=== PATIENT | male | born 1975 | race Caucasian/White ===

== ENCOUNTER 2021-06-27 06:24 | Day surgery (SDC) | payer BC ==
[2021-06-27] MEDS ORDERED: Sensorcaine 0.25% 10 ML ONE (06:38)
[2021-06-27] MEDS ORDERED: Zofran 4 MG/2 ML VIAL ONE ×2 (07:05→10:42)
[2021-06-27] MEDS ORDERED: DIPRIVAN 200 MG/20 ML IV ONE (07:05)
[2021-06-27] MEDS ORDERED: Zemuron 100 MG/10 ML ONE ×4 (07:05→09:53)
[2021-06-27] MEDS ORDERED: BRIDION 200MG/2ML IV ONE (07:05)
[2021-06-27] MEDS ORDERED: Versed 2 MG/2 ML Injection ONE (07:06)
[2021-06-27] MEDS ORDERED: SUBLIMAZE 100 MCG/2 ML ONE ×3 (07:06→10:42)
[2021-06-27] MEDS ORDERED: Lactated Ringers 1,000 ML IV ONE (07:11)
[2021-06-27] MEDS ORDERED: MEFOXIN 2 GM PREMIX** 2 GM/50 ML ML IV ONE (07:11)
[2021-06-27 07:17] VITALS: O2SAT 95
[2021-06-27] MEDS ORDERED: Lactated Ringers 1,000 ML IV SCH (07:30)
[2021-06-27] MEDS ORDERED: MEFOXIN 2 GM PREMIX** 2 GM/50 ML ML IV SCH (08:00)
[2021-06-27] MEDS ORDERED: Decadron 4 MG INJ ONE (08:58)
[2021-06-27] MEDS ORDERED: TORAdol 30 mg Injection ONE (09:20)
[2021-06-27 11:50] VITALS: BP 144/96; PULSE 73
--- NOTE | 2021-06-28 09:53 | OP ---
PROCEDURE DATE/TIME: 06/27/2021 0843 PREOPERATIVE DIAGNOSIS: Chronic cholecystitis with cholelithiasis. POSTOPERATIVE DIAGNOSIS: Chronic cholecystitis with cholelithiasis. PROCEDURE: Laparoscopic cholecystectomy. PROCEDURE PERFORMED BY: Elsie Valentin M.D. ESTIMATED BLOOD LOSS: Minimal less than 10 cc. ANESTHESIA: General. COMPLICATIONS: None. SPECIMEN: Gallbladder. HISTORY: This is a gentleman who presents with chronic cholecystitis symptoms. He does have gallstones. He is here for cholecystectomy. His MRI of the abdomen specifically to look at his liver has been reviewed with him and appears to be benign findings. He understands. He would like to proceed with his gallbladder surgery. All questions have been answered. His H&P has been reviewed with him, completed and his consent has also been reviewed and confirmed as well. DESCRIPTION OF PROCEDURE: He was then taken back to the operative suite. Anesthesia induced. Prepped and draped in the usual sterile fashion. A complete time out performed. Left upper quadrant incision made. Veress needle used to access the abdominal cavity. Good initial insufflatory pressure of 6. Abdomen insufflated evenly and easily. A 5 mm optical port placed at the same site under direct visualization. No injuries were identified. We then placed a superumbilical port this is an 11 port under direct visualization and two ports in the right upper quadrant both 5 ports. The gallbladder identified. It was retracted cephalad and lateral adhesions were taken down. We carefully dissected free the cystic duct and cystic artery. We then continued to clear our liver plate. The patient did actually have a slightly larger posterior cystic artery branch than the cystic artery anterior branch. These were coming off of the same base. We very clearly identified these and carefully dissected. We obtained a critical view. There were only two structures essentially entering the gallbladder, the cystic duct which was obvious as well as the cystic artery which had a very small anterior branch as well as appropriate sized posterior branch. These structures were then clipped and ligated. The gallbladder was taken off the liver bed with Bovie cautery. It was placed into a laparoscopic bag. The laparoscopic bag was then removed from the abdomen using this to protect the skin. The patient had a moderate sized gallstone that had to be crushed while in the bag to allow extraction. There was no spillage of bile, stones or any other contents. We maintained protection of the abdominal cavity and the skin within the bag at all times, this was all sent to pathology. We then re-inspected. No irrigation was needed. The liver plate was hemostatic. All clips in good location. There is no bile. The patient tolerated the procedure very well. We then proceeded to close. We used 0 laparoscopic suture to close the superumbilical port site this looked good. We then removed the left upper quadrant port. No bleeding. We then desufflated through the right upper quadrant port, removed these. Everything looked hemostatic. Wounds irrigated, closed with buried 4-0 Monocryl, Steri-Strips, sterile dressing. The patient tolerated the procedure very well. I discussed his final results with his family in the postoperative area as well as his instructions. He understands his instructions which were discussed preoperatively as well and he will be following up with me as an outpatient to check his wound, his healing as well as to discuss his final pathology results which are pending.
== END 2021-06-27 12:10 | disposition home or self-care (01) ==
LOC: SDC 06:24
PROVIDERS: ATTEND Surgery
DX: K80.10 Calculus of gallbladder with chronic cholecystitis without obstruction (principal)
CPT/HCPCS: J0694; J1100; J1885; J2250; J2405; J2704; J3010